=== PATIENT | female | born 1960 | race Caucasian/White ===

== ENCOUNTER → 2017-05-12 | Outpatient (CLI) | payer OTHER | LOC: FIMAGING 07:42 | PROVIDERS: ATTEND Family Medicine | DX: Z12.31 Encounter for screening mammogram for malignant neoplasm of breast (principal) | CPT/HCPCS: G0202 ==

== ENCOUNTER → 2018-04-01 | Outpatient (CLI) | payer OTHER | LOC: FIMAGING 17:13 | PROVIDERS: ATTEND Family Medicine | DX: N83.8 Other noninflammatory disorders of ovary, fallopian tube and broad ligament (principal); Z90.710 Acquired absence of both cervix and uterus ==